=== PATIENT | female | born 1955 | race Caucasian/White ===

== ENCOUNTER 2016-06-26 03:36 | Inpatient (IN) | payer BC, OTHER ==
[~2016-06-26] VITALS: Ht 156.2 cm; Wt 107.5 kg
[2016-06-26] VITALS (16 sets, daily range): BP systolic 125–217; BP diastolic 60–115
[~2016-06-26 03:36] MED LIST: CYMBALTA60 MG PO; Coumadin,Jantoven PO; Cymbalta PO; Diovan HCT 160/12.5 PO; Flagyl PO; Levaquin PO; Lovenox SC; MOBIC7.5 MG PO; Oscal 500 w/Vitamin PO; PriLOSEC PO; ZOCOR20 MG PO; Zestril,Prinivil PO; Zocor PO
[2016-06-26 04:54] LABS: HEMATOCRIT 43.4 % (36.0-46.0); MCH 29.1 PG (29.0-34.0); MCV 90.8 FL (83-99); MEAN PLAT.VOLUME 9.8 uM^3 (9.5-12.4); PLATELET COUNT 316 K/uL (156-360); RBC DIS.WIDTH-CV 13.9 % (11.8-14.6); RBC DIS.WIDTH-SD 46.7 % (39-53); RED BLOOD COUNT 4.78 M/uL (3.80-5.20); WHITE BLOOD COUNT 7.7 K/uL (4.1-10.2)
[2016-06-26 05:08] LABS: PROTHROMBIN TIME 31.7 (9.2-11.2)
[2016-06-26 05:19] LABS: CHLORIDE 110 mEq/L (99-109); POTASSIUM 3.9 mEq/L (3.7-5.4); SODIUM 141 mEq/L (136-147)
[2016-06-26 05:20] LABS: GLUCOSE 153 mg/dL (70-99)
[2016-06-26 05:22] LABS: ANION GAP 13 MEQ/L (2-14)
[2016-06-26 05:24] LABS: GFR ESTIMATE (CALCULATED) > 59 mL/min/
[2016-06-26 05:25] LABS: UREA NITROGEN (BUN) 29 mg/dL (9-23)
[2016-06-26 07:02] LABS: HEMATOCRIT 41.5 % (36.0-46.0)
[2016-06-26] MEDS ORDERED: OMEPRAZOLE20 MG PO (08:53)
[2016-06-26] MEDS ORDERED: WARFARIN SODIUM2 MG PO (08:54)
[2016-06-26] MEDS ORDERED: CYMBALTA60 MG PO ×2 (08:55→19:42)
[2016-06-26 10:13] LABS: INTER. NORMALIZED RATIO 1.5; PROTHROMBIN TIME 15.8 (9.2-11.2)
[2016-06-26] MEDS ORDERED: MELATONIN5 M4 PO (19:24)
[2016-06-26] MEDS ORDERED: CHONDROITIN SU250 MG PO (19:26)
[2016-06-26] MEDS ORDERED: RANITIDINE HCL300 MG PO (19:44)
[2016-06-26] MEDS ORDERED: WARFARIN SODIUM1 MG PO ×2 (19:45)
[2016-06-27 04:39] LABS: HEMATOCRIT 35.2 % (36.0-46.0); MCH 28.5 PG (29.0-34.0); MCHC 31.5 G/DL (30.0-36.0); MCV 90.5 FL (83-99); MEAN PLAT.VOLUME 9.4 uM^3 (9.5-12.4); PLATELET COUNT 256 K/uL (156-360); RBC DIS.WIDTH-CV 14.3 % (11.8-14.6); RBC DIS.WIDTH-SD 46.9 % (39-53); RED BLOOD COUNT 3.89 M/uL (3.80-5.20)
[2016-06-27 04:48] LABS: INTER. NORMALIZED RATIO 1.2; PROTHROMBIN TIME 12.2 (9.2-11.2)
[2016-06-27 04:49] LABS: CHLORIDE 109 mEq/L (99-109); SODIUM 142 mEq/L (136-147)
[2016-06-27 04:51] LABS: GLUCOSE 117 mg/dL (70-99)
[2016-06-27 04:52] LABS: ANION GAP 10 MEQ/L (2-14)
[2016-06-27 04:55] LABS: GFR ESTIMATE (CALCULATED) > 59 mL/min/
[2016-06-27 04:56] LABS: UREA NITROGEN (BUN) 21 mg/dL (9-23)
[2016-06-27 05:10] VITALS: BP 192/93
[2016-06-27 07:56] VITALS: BP 136/78
[2016-06-27 16:25] VITALS: BP 132/85
[2016-06-27 20:25] VITALS: BP 164/88
[2016-06-27 23:13] VITALS: BP 164/85
[2016-06-28 05:19] LABS: HEMATOCRIT 32.6 % (36.0-46.0); MCH 29.6 PG (29.0-34.0); MCHC 32.2 G/DL (30.0-36.0); MCV 91.8 FL (83-99); MEAN PLAT.VOLUME 9.6 uM^3 (9.5-12.4); PLATELET COUNT 257 K/uL (156-360); RBC DIS.WIDTH-CV 14.5 % (11.8-14.6); RBC DIS.WIDTH-SD 48.5 % (39-53); RED BLOOD COUNT 3.55 M/uL (3.80-5.20); WHITE BLOOD COUNT 9.2 K/uL (4.1-10.2)
[2016-06-28 05:40] LABS: INTER. NORMALIZED RATIO 1.1; PROTHROMBIN TIME 11.6 (9.2-11.2)
[2016-06-28 06:04] LABS: ANION GAP 10 MEQ/L (2-14); CHLORIDE 106 MEQ/L (99-109); GFR ESTIMATE (CALCULATED) > 59 mL/min/; GLUCOSE 118 mg/dL (70-99); POTASSIUM 3.9 MEQ/L (3.7-5.4); SAMPLE HEMOLYSIS CHECK 0; SAMPLE ICTERIC CHECK 0; SAMPLE LIPEMIA CHECK 0; SODIUM 141 MEQ/L (136-147); UREA NITROGEN (BUN) 20 mg/dL (9-23)
[2016-06-28 08:19] VITALS: BP 157/79
[2016-06-28 16:05] VITALS: BP 149/79
[2016-06-28 23:26] VITALS: BP 110/73
[2016-06-29 05:09] LABS: HEMATOCRIT 31.8 % (36.0-46.0); MCH 28.9 PG (29.0-34.0); MCHC 31.1 G/DL (30.0-36.0); MCV 92.7 FL (83-99); MEAN PLAT.VOLUME 9.7 uM^3 (9.5-12.4); PLATELET COUNT 236 K/uL (156-360); RBC DIS.WIDTH-CV 14.7 % (11.8-14.6); RBC DIS.WIDTH-SD 49.8 % (39-53); RED BLOOD COUNT 3.43 M/uL (3.80-5.20); WHITE BLOOD COUNT 8.3 K/uL (4.1-10.2)
[2016-06-29 05:15] LABS: INTER. NORMALIZED RATIO 1.1; PROTHROMBIN TIME 11.6 (9.2-11.2)
[2016-06-29 05:38] LABS: ANION GAP 10 MEQ/L (2-14); CHLORIDE 104 MEQ/L (99-109); GFR ESTIMATE (CALCULATED) > 59 mL/min/; GLUCOSE 99 mg/dL (70-99); POTASSIUM 3.5 MEQ/L (3.7-5.4); SAMPLE HEMOLYSIS CHECK 0; SAMPLE ICTERIC CHECK 0; SAMPLE LIPEMIA CHECK 0; SODIUM 140 MEQ/L (136-147); UREA NITROGEN (BUN) 20 mg/dL (9-23)
[2016-06-29 08:07] VITALS: BP 118/67
[2016-06-29] MEDS ORDERED: LISINOPRIL20 MG PO (08:44)
[2016-06-29] MEDS ORDERED: ATENOLOL25 MG PO (08:44)
[2016-06-29] MEDS ORDERED: TYLENOL REGULA325 MG PO (08:44)
[2016-06-29] MEDS ORDERED: CLINDAMYCIN HC300 MG PO (08:45)
== END 2016-06-29 10:46 | disposition home or self-care (01) | DRG 305 ==
LOC: EME 03:36 → EDOF 08:18 → 3EAST 08:18
PROVIDERS: Emergency Medicine; Internal Medicine
PROC: 30233K1 Transfusion of Nonautologous Frozen Plasma into Peripheral Vein, Percutaneous Approach (ICD-10-PCS; principal; 2016-06-26)
PROC: 099KXZZ Drainage of Nasal Mucosa and Soft Tissue, External Approach (ICD-10-PCS; principal; 2016-06-26)
PROC: 2Y41X5Z Packing of Nasal Region using Packing Material (ICD-10-PCS; principal; 2016-06-26)
DX: I16.0 Hypertensive urgency (principal); R04.0 Epistaxis; E66.01 Morbid (severe) obesity due to excess calories; Z68.41 Body mass index [BMI] 40.0-44.9, adult; Z86.711 Personal history of pulmonary embolism; Z86.718 Personal history of other venous thrombosis and embolism; I10 Essential (primary) hypertension; M19.90 Unspecified osteoarthritis, unspecified site; I27.82 Chronic pulmonary embolism; Z79.01 Long term (current) use of anticoagulants; D68.52 Prothrombin gene mutation; E78.5 Hyperlipidemia, unspecified; K21.9 Gastro-esophageal reflux disease without esophagitis; E55.9 Vitamin D deficiency, unspecified; Z95.9 Presence of cardiac and vascular implant and graft, unspecified; F33.9 Major depressive disorder, recurrent, unspecified; J32.9 Chronic sinusitis, unspecified; D68.32 Hemorrhagic disorder due to extrinsic circulating anticoagulants; T45.515A Adverse effect of anticoagulants, initial encounter
CPT/HCPCS: 80048; 85014; 85014 GA; 85018; 85018 GA; 85027; 85610; 86900; 86901; 94799; 99281; 99285; J0360; J2405; J3430; J7030; J7050; P9017

== ENCOUNTER 2016-07-04 05:38 | Inpatient (IN) | payer BC, OTHER ==
[~2016-07-04] VITALS: Ht 157.5 cm; Wt 111.7 kg
[~2016-07-04 05:38] MED LIST changes: +ATENOLOL25 MG PO; +CHONDROITIN SU250 MG PO; +CLINDAMYCIN HC300 MG PO; +LISINOPRIL20 MG PO; +MELATONIN5 M4 PO; +OMEPRAZOLE20 MG PO; +RANITIDINE HCL300 MG PO; +TYLENOL REGULA325 MG PO; +WARFARIN SODIUM1 MG PO; +WARFARIN SODIUM2 MG PO
[2016-07-04 07:53] LABS: ADD MIUA? YES; BILIRUBIN NEGATIVE; BLOOD NEGATIVE; COLOR YELLOW ((YELLOW)); GLUCOSE (STRIP) NEGATIVE; KETONES NEGATIVE; LEUKOCYTES NEGATIVE; NITRITE NEGATIVE; PROTEIN (STRIP) NEGATIVE; SPECIFIC GRAVITY 1.016 (1.000-1.030); UROBILINOGEN 0.2 MG/DL (0.2-1.0)
[2016-07-04 07:56] LABS: BACTERIA RARE /HPF; EPITHELIAL CELLS 1+ /HPF; MUCUS TRACE /LPF; RED BLOOD CELLS 0-5 /HPF (0-5); UCUL ADDED? NO; WHITE BLOOD CELLS 0-5 /HPF (0-5)
[2016-07-04 08:11] LABS: CHLORIDE 108 mEq/L (99-109); SODIUM 140 mEq/L (136-147)
[2016-07-04 08:13] LABS: GLUCOSE 120 mg/dL (70-99); POTASSIUM 4.3 mEq/L (3.7-5.4)
[2016-07-04 08:14] LABS: ANION GAP 14 MEQ/L (2-14)
[2016-07-04 08:15] LABS: TOTAL BILIRUBIN 0.5 mg/dL (0.0-1.0)
[2016-07-04 08:16] LABS: ALKALINE PHOSPHATASE 139 IU/L (3-129)
[2016-07-04 08:17] LABS: GFR ESTIMATE (CALCULATED) 33 mL/min/
[2016-07-04 08:26] LABS: UREA NITROGEN (BUN) 59 mg/dL (9-23)
[2016-07-04 08:29] LABS: HEMATOCRIT 28.5 % (36.0-46.0); MCH 29.1 PG (29.0-34.0); MCHC 31.2 G/DL (30.0-36.0); MCV 93.1 FL (83-99); MEAN PLAT.VOLUME 10.1 uM^3 (9.5-12.4); PLATELET COUNT 200 K/uL (156-360); RBC DIS.WIDTH-CV 14.7 % (11.8-14.6); RBC DIS.WIDTH-SD 49.5 % (39-53); RED BLOOD COUNT 3.06 M/uL (3.80-5.20); WHITE BLOOD COUNT 12.1 K/uL (4.1-10.2)
[2016-07-04 08:40] LABS: INTER. NORMALIZED RATIO 1.7
[2016-07-04 09:06] LABS: PROTHROMBIN TIME 17.4 (9.2-11.2)
[2016-07-04 10:10] LABS: TROP-I INTERPRETATION NEGATIVE; TROPONIN-I < 0.01 ng/mL (0.0-0.30)
[2016-07-04 14:47] VITALS: BP 99/61
[2016-07-04 17:17] LABS: TROP-I INTERPRETATION NEGATIVE; TROPONIN-I < 0.01 ng/mL (0.0-0.30)
[2016-07-04 19:10] VITALS: BP 114/60
[2016-07-04 21:15] LABS: TROP-I INTERPRETATION NEGATIVE; TROPONIN-I < 0.01 ng/mL (0.0-0.30)
[2016-07-05 00:11] VITALS: BP 104/60
[2016-07-05 03:34] VITALS: BP 101/51
[2016-07-05 06:08] LABS: BASOPHIL COUNT 0.1 K/uL (0-0.1); EOSINOPHIL (%) 2.9 % (0-5); EOSINOPHIL COUNT 0.3 K/uL (0-0.3); HEMATOCRIT 26.4 % (36.0-46.0); IMM.RETIC FRACTION 29.6 % (3-19); IMMATURE GRANULOCYTE (%) 2.6 % (0.0-0.7); IMMATURE GRANULOCYTE COUNT 0.3 K/uL; INSTRUMENT ABS NEUTROPHIL CT 7.9 K/uL; LYMPHOCYTE COUNT 1.2 K/uL (1.0-2.8); MCH 29.5 PG (29.0-34.0); MCHC 31.4 G/DL (30.0-36.0); MEAN PLAT.VOLUME 9.9 uM^3 (9.5-12.4); MONOCYTE (%) 10.7 % (3-12); MONOCYTE COUNT 1.2 K/uL (0-0.8); NEUTROPHIL (%) 72.4 % (45-76); NEUTROPHIL COUNT 7.9 K/uL (1.8-6.4); PLATELET COUNT 220 K/uL (156-360); RBC DIS.WIDTH-CV 14.6 % (11.8-14.6); RBC DIS.WIDTH-SD 50.5 % (39-53); RED BLOOD COUNT 2.81 M/uL (3.80-5.20); RETIC HGB EQUIVALENT 27.2 (28-36); RETICULOCYTE COUNT 3.7 % (0.5-1.8); WHITE BLOOD COUNT 10.9 K/uL (4.1-10.2)
[2016-07-05 06:43] LABS: IRON 28 MCG/DL (35-150)
[2016-07-05 08:00] VITALS: BP 114/63
[2016-07-05 08:24] LABS: ALKALINE PHOSPHATASE 128 IU/L (3-129); ANION GAP 13 MEQ/L (2-14); CHLORIDE 105 MEQ/L (99-109); FERRITIN 62 NG/ML (10-291); GFR ESTIMATE (CALCULATED) 41 mL/min/; GLUCOSE 114 mg/dL (70-99); POTASSIUM 4.2 MEQ/L (3.7-5.4); SAMPLE HEMOLYSIS CHECK 0; SAMPLE ICTERIC CHECK 0; SAMPLE LIPEMIA CHECK 0; SODIUM 138 MEQ/L (136-147); TOTAL BILIRUBIN 0.5 MG/DL (0.0-1.0); UREA NITROGEN (BUN) 54 mg/dL (9-23)
[2016-07-05 12:02] VITALS: BP 106/64
[2016-07-05 12:30] LABS: PROTHROMBIN TIME 21.1 (9.2-11.2)
[2016-07-05 16:42] VITALS: BP 120/68
[2016-07-05 20:15] VITALS: BP 132/76
[2016-07-06] VITALS (7 sets, daily range): BP systolic 108–126; BP diastolic 56–79
[2016-07-06 06:35] LABS: HEMATOCRIT 26.4 % (36.0-46.0); MCH 29.3 PG (29.0-34.0); MCHC 31.4 G/DL (30.0-36.0); MCV 93.3 FL (83-99); MEAN PLAT.VOLUME 9.7 uM^3 (9.5-12.4); PLATELET COUNT 282 K/uL (156-360); RBC DIS.WIDTH-CV 14.5 % (11.8-14.6); RBC DIS.WIDTH-SD 49.5 % (39-53); RED BLOOD COUNT 2.83 M/uL (3.80-5.20); WHITE BLOOD COUNT 10.8 K/uL (4.1-10.2)
[2016-07-06 07:23] LABS: ALKALINE PHOSPHATASE 151 IU/L (3-129); ANION GAP 14 MEQ/L (2-14); CHLORIDE 108 MEQ/L (99-109); GFR ESTIMATE (CALCULATED) 54 mL/min/; GLUCOSE 116 mg/dL (70-99); INTER. NORMALIZED RATIO 2.5; POTASSIUM 4.4 MEQ/L (3.7-5.4); PROTHROMBIN TIME 25.8 (9.2-11.2); SAMPLE HEMOLYSIS CHECK 0; SAMPLE ICTERIC CHECK 0; SAMPLE LIPEMIA CHECK 0; SODIUM 139 MEQ/L (136-147); TOTAL BILIRUBIN 0.5 MG/DL (0.0-1.0); UREA NITROGEN (BUN) 41 mg/dL (9-23)
[2016-07-07 04:20] VITALS: BP 115/56
[2016-07-07 06:50] LABS: INTER. NORMALIZED RATIO 2.9; PROTHROMBIN TIME 30.4 (9.2-11.2)
[2016-07-07 07:23] VITALS: BP 118/70
[2016-07-07 11:48] VITALS: BP 110/71
[2016-07-07 16:26] VITALS: BP 106/65
[2016-07-07 19:21] VITALS: BP 129/85
[2016-07-07 23:48] VITALS: BP 105/61
[2016-07-08 03:48] VITALS: BP 119/59
[2016-07-08 07:11] LABS: INTER. NORMALIZED RATIO 2.8; PROTHROMBIN TIME 28.9 (9.2-11.2)
[2016-07-08 07:23] LABS: HEMATOCRIT 26.3 % (36.0-46.0); MCH 29.5 PG (29.0-34.0); MCHC 31.9 G/DL (30.0-36.0); MCV 92.3 FL (83-99); MEAN PLAT.VOLUME 9.5 uM^3 (9.5-12.4); RBC DIS.WIDTH-CV 14.6 % (11.8-14.6); RBC DIS.WIDTH-SD 49.2 % (39-53); RED BLOOD COUNT 2.85 M/uL (3.80-5.20)
[2016-07-08 07:29] LABS: PLATELET COUNT 384 K/uL (156-360)
[2016-07-08 07:36] LABS: ANION GAP 12 MEQ/L (2-14); CHLORIDE 106 MEQ/L (99-109); GFR ESTIMATE (CALCULATED) > 59 mL/min/; GLUCOSE 96 mg/dL (70-99); POTASSIUM 4.2 MEQ/L (3.7-5.4); SAMPLE HEMOLYSIS CHECK 0; SAMPLE ICTERIC CHECK 0; SAMPLE LIPEMIA CHECK 0; SODIUM 137 MEQ/L (136-147); UREA NITROGEN (BUN) 27 mg/dL (9-23)
[2016-07-08 08:28] VITALS: BP 117/72
[2016-07-08 12:03] VITALS: BP 119/79
[2016-07-08 16:08] VITALS: BP 118/74
[2016-07-08 20:21] VITALS: BP 106/68
[2016-07-08 23:33] VITALS: BP 109/63
[2016-07-09 03:37] VITALS: BP 124/71
[2016-07-09 06:25] LABS: INTER. NORMALIZED RATIO 2.3
[2016-07-09 07:15] VITALS: BP 129/73
[2016-07-09 12:00] VITALS: BP 114/68
[2016-07-09 16:05] VITALS: BP 116/69
[2016-07-09 19:38] VITALS: BP 116/75
[2016-07-09 23:36] VITALS: BP 114/69
[2016-07-10 03:35] VITALS: BP 123/74
[2016-07-10 06:37] LABS: INTER. NORMALIZED RATIO 2.1; PROTHROMBIN TIME 22.4 (9.2-11.2)
[2016-07-10 08:21] VITALS: BP 103/65
[2016-07-10 11:10] VITALS: BP 127/76
[2016-07-10 15:15] VITALS: BP 116/69
[2016-07-10 19:24] VITALS: BP 106/71
[2016-07-10 23:58] VITALS: BP 116/68
[2016-07-11 04:11] VITALS: BP 111/70
[2016-07-11 06:52] LABS: PROTHROMBIN TIME 21.1 (9.2-11.2)
[2016-07-11 07:53] VITALS: BP 120/71
[2016-07-11] MEDS ORDERED: OMEPRAZOLE20 MG PO (16:50)
== END 2016-07-11 17:25 | disposition home or self-care (01) | DRG 683 ==
LOC: EME 05:38 → 4EAST 11:45 → EDOF 11:45 → 4EAST 14:49 → 2EAST 07-09 15:59
PROVIDERS: Emergency Medicine; Internal Medicine
DX: N17.9 Acute kidney failure, unspecified (principal); F33.2 Major depressive disorder, recurrent severe without psychotic features; Z68.41 Body mass index [BMI] 40.0-44.9, adult; E87.2 Acidosis; D68.52 Prothrombin gene mutation; I82.423 Acute embolism and thrombosis of iliac vein, bilateral; I82.443 Acute embolism and thrombosis of tibial vein, bilateral; I82.811 Embolism and thrombosis of superficial veins of right lower extremity; I82.411 Acute embolism and thrombosis of right femoral vein; I82.431 Acute embolism and thrombosis of right popliteal vein; I27.82 Chronic pulmonary embolism; I95.2 Hypotension due to drugs; E78.5 Hyperlipidemia, unspecified; I10 Essential (primary) hypertension; K21.9 Gastro-esophageal reflux disease without esophagitis; T46.4X5A Adverse effect of angiotensin-converting-enzyme inhibitors, initial encounter; K83.8 Other specified diseases of biliary tract; D50.0 Iron deficiency anemia secondary to blood loss (chronic); K76.0 Fatty (change of) liver, not elsewhere classified; E83.51 Hypocalcemia; E66.9 Obesity, unspecified; E86.0 Dehydration; Z79.01 Long term (current) use of anticoagulants; Z88.0 Allergy status to penicillin; Z86.718 Personal history of other venous thrombosis and embolism; Z09 Encounter for follow-up examination after completed treatment for conditions other than malignant neoplasm; Z88.2 Allergy status to sulfonamides; Z83.3 Family history of diabetes mellitus; Z82.3 Family history of stroke; Z82.49 Family history of ischemic heart disease and other diseases of the circulatory system
CPT/HCPCS: 70551; 71010; 76705; 80048; 80053; 81003; 82330; 82607; 82728; 83540; 83605; 84443; 84484; 85025; 85027; 85045; 85610; 85730; 86900; 86901; 87040; 93005; 93306; 93971; 99281; 99285; J7030